=== PATIENT | female | born 1945 | race Caucasian/White ===

== ENCOUNTER 2017-11-15 02:39 | Emergency (ER) | END 2017-11-15 06:05 | disposition home or self-care (01) ==

== ENCOUNTER 2018-02-14 17:40 | Emergency (ER) | payer MEDICARE, OTHER ==
[~2018-02-14] VITALS: Wt 63.0 kg
[~2018-02-14 17:40] MED LIST: AMLO2.5T78 PO; BACL10TA PO; CIPR500T4 PO; IBUP-1542 PO; TRAM50TA PO
[2018-02-14] MEDS ORDERED: MECLIZINE 12.5 MG TAB PO ONE (19:00)
[2018-02-14] MEDS ORDERED: MECL12.574 PO (19:47)
--- NOTE | 2018-02-14 19:47 | ERD ---
ER Documentation Chief Complaint Chief Complaint HEADACHE/NECK PAIN AND DIZZY TODAY HPI This is a 72-year-old female who complains that at 2:00 today she was bending over picking up something off the floor when she stood up the room started spinning strongly. She did not have any syncopal episode. She says she has had some ringing in both of her ears. No focal neurological complaints of numbness weakness. No speech change no visual change. She states that she turns her head will induce spinning. If she remains still gets better. Denies recent illness. She complains of a dull diffuse mild headache ROS All systems reviewed and are negative except as per history of present illness. Medications Home Meds Discontinued Reported Medications Tramadol Hcl* (Ultram*) 50 Mg Tablet, 50 MG PO Q6H PRN for PAIN, TAB 11/15/17 Baclofen* (Baclofen*) 10 Mg Tablet, 10 MG PO QID, TAB 11/15/17 Amlodipine Besylate* (Amlodipine Besylate*) 2.5 Mg Tablet, 2.5 MG PO DAILY, #30 TAB 11/15/17 Discontinued Scripts Ibuprofen* (Motrin*) 600 Mg Tab, 600 MG PO Q6H PRN for PAIN AND OR ELEVATED TEMP, #15 TAB Prov:LAW ARAYA MD 11/15/17 Ciprofloxacin Hcl* (Ciprofloxacin Hcl*) 500 Mg Tablet, 500 MG PO BID for 7 Days, TAB Prov:LAW ARAYA MD 11/15/17 Allergies Allergies: Uncoded Allergies: PCN (Allergy, Unknown, RASH, 02/14/18) PMhx/Soc History of Surgery: Yes (bladder sx, TAHBSO) Anesthesia Reaction: No Hx Neurological Disorder: No Hx Respiratory Disorders: No Hx Cardiac Disorders: Yes (HTN) Hx Psychiatric Problems: No Hx Miscellaneous Medical Probl: No Hx Alcohol Use: No Hx Substance Use: No Hx Tobacco Use: No Smoking Status: Never smoker FmHx Family History: No coronary disease Physical Exam Vitals Vital Signs Date Temp Pulse Resp B/P (MAP) Pulse Ox O2 O2 Flow FiO2 Time Delivery Rate 02/14/18 98.1 75 20 120/80 97 Room Air 18:43 (93) 02/14/18 98.1 84 18 150/72 99 17:45 (98) Physical Exam Const: Well-developed, well-nourished Head: Atraumatic, normocephalic Eyes: Normal Conjunctiva, PERRLA, EOMI, normal sclera, no nystagmus ENT: Normal External Ears, Nose and Mouth, moist mucus membranes. Neck: Full range of motion. No meningismus, no lymphadenopathy. Resp: Clear to auscultation bilaterally, no wheezing, rhonchi, rales Cardio: Regular rate and rhythm, no murmurs, S1 S2 present Abd: Soft, non tender x 4, non distended. Normal bowel sounds, no guarding or rebound, no pulsitile abdominal masses or bruits Skin: No petechiae or rashes, no ecchymosis , no maculopapular rash Back: No midline or flank tenderness Ext: No cyanosis, or edema, FROM x 4, normal inspection, neurovascularly intact x 4 Neur: Awake and alert, STR 5/5 x 4, sensation intact x 4, no focal findings, cerebellum intact, positive Hallpike with head turn to the right Psych: Normal Mood and Affect Results 24 hrs Current Medications Medications Dose Sig/Tania Start Time Status Last (Trade) Ordered Route PRN Stop Time Admin Dose Reason Admin Meclizine 25 mg ONCE ONCE 02/14/18 DC 02/14/18 HCl PO 19:00 18:50 (Antivert) 02/14/18 19:01 Procedures/MDM MR #: [id number] DOS: 02/14/18 1842 Ordering MD: CECI DAVIS DO Location: E/R Room/Bed: PROCEDURE: CT brain without contrast. CLINICAL INDICATION: Headache. TECHNIQUE: CT scan of the brain was performed on a multi-detector high- resolution CT scanner. Contiguous axial images were obtained from the skull base to the vertex without intravenous contrast. Coronal and sagittal reformatted images were also obtained. Images were reviewed on the PACS workstation. DICOM images are available. One or more of the following dose reduction techniques were used: - Automated exposure control. - Adjustment of the mA and/or kV according to patient size. - Use of iterative reconstruction technique. Exam CTD/vol = 38.77 mGy. Total exam DLP = 634.23 mGy-cm. COMPARISON: None. FINDINGS: The ventricles and cortical sulci are prominent consistent with mild age related volume loss. There are patchy areas of low attenuation within the periventricular white matter consistent with minimal chronic ischemic changes secondary to small vessel disease. There is no mass effect or midline shift. There is no intracranial hemorrhage or abnormal extra-axial collection. The calvarium is intact. There is no evidence of fracture. Visualized paranasal sinuses and mastoid air cells are clear. IMPRESSION: No acute intracranial abnormality identified. Mild age related volume loss and minimal chronic ischemic white matter disease. .Gianluca Burciaga MD, MD Date Time Electronically viewed and signed by .Gianluca Burciaga MD, on 02/14/2018 19:22 .T/ CC: CECI DAVIS DO [id number] Patient has a classic picture for peripheral vertigo. She got Antivert here and is feeling better. Will discharge home with Antivert and stroke warning precautions Patient feels much better at this time, and vital signs are normal, symptoms have improved. I did give strict instructions to return to the ED if symptoms continue or worsen, patient will otherwise follow-up with primary care physician. Patient understood instructions and agreed to plan. Disclaimer: Inadvertent spelling and grammatical errors are likely due to EHR/dictation software use and do not reflect on the overall quality of patient care. Also, please note that the electronic time recorded on this note does not necessarily reflect the actual time of the patient encounter. Departure Diagnosis: Primary Impression: Vertigo Condition: Stable CECI DAVIS DO Feb 14, 2018 19:47
[2018-02-14 20:02] VITALS: BP 115/65; PULSE 70; RESP 18
== END 2018-02-14 20:05 | disposition home or self-care (01) ==
LOC: E/R 17:40
DX: R42 Dizziness and giddiness (principal); R40.2142 Coma scale, eyes open, spontaneous, at arrival to emergency department; R40.2252 Coma scale, best verbal response, oriented, at arrival to emergency department; R40.2362 Coma scale, best motor response, obeys commands, at arrival to emergency department; I10 Essential (primary) hypertension
CPT/HCPCS: 70450